=== PATIENT | male | born 1935 | race Caucasian/White ===

== ENCOUNTER 2021-02-20 08:06 | Outpatient (CLI) | payer MEDICARE, SELFPAY ==
--- NOTE | ~2021-02-20 | US_ITS ---
EXAMINATION: US art doppler w press LE BI DATE: 02/20/2021 09:11 INDICATION: Intermittent claudication. TECHNIQUE: Segmental pressures and plethysmographic and Doppler waveforms of the brachial and lower e xtremity arteries were obtained. COMPARISON: None. FINDINGS: Right and left brachial artery pressures of 155 mm Hg and 153 mm Hg, respectively, are concordant (no rmal difference <= 30 mmHg). The right and left high-thigh pressure indices are 1.19 and 1.16, respec tively (normal > 1.2). The right ankle-brachial index (NIKKI) is 1.18 (normal >= 0.9-1). The right great toe-brachial index (T BI) is 0.96 (normal >= 0.6-0.8). The right lower extremity segmental pressure gradients are normal (n ormal gradients <= 20-30 mmHg between adjacent levels on the same leg or the same levels on the two l egs). Arterial waveforms are triphasic at the right common femoral and superficial femoral arteries a nd biphasic at the right popliteal, posterior tibial and dorsalis pedis arteries with brisk systolic upstrokes throughout. The left NIKKI is 1.34. The left TBI is 0.92. The left lower extremity segmental pressure gradients are normal. Arterial waveforms are biphasic with brisk systolic upstrokes throughout the arteries of the left lower limb.. IMPRESSION: 1. Normal NIKKI's and TBI's bilaterally. No significant occlusive disease. Reviewed, dictated and finalized at location A.
== END 2021-02-20 08:07 | disposition home or self-care (01) ==
PROVIDERS: PCP Internal Medicine; Visit Provider Internal Medicine
DX: I73.9 Peripheral vascular disease, unspecified (principal)
CPT/HCPCS: 93923

== ENCOUNTER 2023-04-19 02:39 | Emergency (ER) | payer MEDICARE, SELFPAY ==
--- NOTE | ~2023-04-19 | CT_ITS ---
EXAMINATION: CT brain wo con DATE: 04/19/2023 03:52 INDICATION: Head injury. TECHNIQUE: Computed tomography (CT) of the head was performed without intravenous contrast. The mA wa s adjusted according to patient size. Iterative reconstruction technique was employed. The dose-lengt h product was 681.00 mGy-cm. COMPARISON: None FINDINGS: There is an old infarct involving the left frontoparietal region. There is an infarct in th e left thalamus. There are scattered areas of low attenuation in the cerebral white matter. There is no intracranial hemorrhage or abnormal mass lesion. The ventricles are normal in size. There is cavum septum pellucidum and vergae. The orbits are normal. There is mucosal thickening in the paranasal si nuses. The mastoid air cells are normal. IMPRESSION: 1. Old infarct involving the left frontoparietal region. 2. Age-indeterminate infarct in the left thalamus. 3. Moderate nonspecific cerebral white matter disease, which likely represents chronic small vessel i schemic disease. Reviewed, dictated and finalized at location E. R OPERATOR IMPRESSION: 1. Old infarct involving the left frontoparietal region. 2. Age-indeterminate infarct in the left thalamus. 3. Moderate nonspecific cerebral white matter disease, which likely represents chronic small vessel ischemic disease.
--- NOTE | ~2023-04-19 | XR_ITS ---
EXAMINATION: XR ankle RT min 3V DATE: 04/19/2023 03:55 INDICATION: Right ankle pain and swelling. Fall. TECHNIQUE: 4 views of right ankle were obtained. COMPARISON: None. FINDINGS: Bone alignment is normal. No fracture. There is mild osteoarthritis involving the ankle ben nt and midfoot. There are enthesophytes at the posterior and plantar aspects of calcaneal tuberosity. IMPRESSION: 1. Mild polyarticular osteoarthritis. Reviewed, dictated and finalized at location E. CAL CASE MANAGER
--- NOTE | ~2023-04-19 | CT_ITS ---
EXAMINATION: CT cervical spine wo con DATE: 04/19/2023 03:52 INDICATION: Neck pain. Fall. TECHNIQUE: Computed tomography (CT) of the cervical spine was performed without intravenous contrast. Automated exposure control and iterative reconstruction technique were employed. The dose-length pro duct was 169.39 mGy-cm. COMPARISON: None FINDINGS: There is 2 mm retrolisthesis of C3 on C4. Vertebral body heights are normal. There is sever virgie decreased disc height at C3-C4, moderately decreased disc height at C4-C5, severely decreased dis c height at C5-C6, and mildly decreased disc height at C6-C7. The following disc levels are specifica lly discussed: C2-C3: There is mild bilateral uncovertebral joint osteoarthritis. There is severe right and moderate left facet joint osteoarthritis. There is no neural foraminal stenosis. There is mild central canal stenosis. C3-C4: There is severe bilateral uncovertebral joint osteoarthritis. There is mild bilateral facet ildefonso int osteoarthritis. There is mild bilateral neural foraminal stenosis. There is mild central canal st enosis. C4-C5: There is mild bilateral uncovertebral joint osteoarthritis. There is moderate bilateral facet joint osteoarthritis. There is mild bilateral neural foraminal stenosis. There is mild central canal stenosis. C5-C6: There is severe bilateral uncovertebral joint osteoarthritis. There is severe bilateral facet joint osteoarthritis. There is mild right and moderate left neural foraminal stenosis. There is mild central canal stenosis. C6-C7: There is mild bilateral uncovertebral joint osteoarthritis. There is moderate bilateral facet joint osteoarthritis. There is no neural foraminal stenosis. There is no central canal stenosis. C7-T1: There is no uncovertebral joint osteoarthritis. There is moderate right and severe left facet joint osteoarthritis. There is mild left neural foraminal stenosis. There is no central canal stenosi s. IMPRESSION: 1. No fracture. 2. Severe cervical spondylosis. Reviewed, dictated and finalized at location E. ON INSPECTOR
[2023-04-19 02:38] VITALS: BP 104/76; PULSE 79; RESP 17; TEMP 36.6; O2SAT 100
[2023-04-19 02:45] VITALS: BP 121/79; PULSE 77; RESP 17; TEMP 36.6; O2SAT 100
--- NOTE | 2023-04-19 04:21 | ED.GENADULT ---
HPI - General Adult General Chief complaint: Fall Stated complaint: FALL OUT OF BED, ON BLOOD THINNERS Time Seen by Provider: 04/19/23 03:02 History of Present Illness HPI narrative: Patient 87-year-old gentleman who presents the emergency department with chief complaint of fall from snf. Patient is a resident of a local snf and is currently on Eliquis the patient has had a prior stroke and apparently rolled out of his bed staff noticed there was a small abrasion on his left ear patient also reports that he has pain in his right ankle. Review of Systems Review of Systems: A 10 system review of systems was completed on the patient and is negative except for what is stated in the HPI. Nursing and ancillary documentation was reviewed. Exam Narrative: GENERAL: Well-appearing, well-nourished, and in no acute distress. HEAD: Normocephalic, small abrasion to the left ear. EYES: PERRLA and EOMI. ENT: Nares clear, no rhinorrhea or epistaxis. Mucous membranes moist. NECK: Supple. CHEST: Clear to auscultation. No respiratory distress. HEART: Regular rate and rhythm. No murmur heard. Normal peripheral pulses. ABDOMEN: Soft, nontender, nondistended, normal active bowel sounds. EXTREMITIES: Normal range of motion has weakness of the lower extremities at baseline. No edema. SKIN: Warm, dry, no rash. NEURO: No focal deficits. Alert and oriented x3. PSYCH: Normal mood and affect. Course Vital Signs Vital signs: Vital Signs Temperature 36.6 C 04/19/23 02:38 Pulse Rate 79 04/19/23 02:38 Respiratory Rate 17 04/19/23 02:38 Blood Pressure 104/76 04/19/23 02:38 Pulse Oximetry 100 04/19/23 02:38 Oxygen Delivery Room Air 04/19/23 02:38 Temperature 36.6 C 04/19/23 02:45 Pulse Rate 73 04/19/23 04:25 Respiratory Rate 20 04/19/23 04:25 Blood Pressure 121/72 04/19/23 04:25 Pulse Oximetry 100 04/19/23 04:25 Oxygen Delivery Room Air 04/19/23 02:38 Medical Decision Making [facility] Narrative Medical decision making narrative: Differential diagnosis includes subdural hematoma, epidural hematoma CT head and CT C-spine were obtained. Plain film x-rays of the right ankle were obtained that showed no evidence of fracture. The small abrasion to the left ear required no surgical close Vital Signs Vital Signs: Vital Signs Temperature 36.6 C 04/19/23 02:38 Pulse Rate 79 04/19/23 02:38 Respiratory Rate 17 04/19/23 02:38 Blood Pressure 104/76 04/19/23 02:38 Pulse Oximetry 100 04/19/23 02:38 Oxygen Delivery Room Air 04/19/23 02:38 Temperature 36.6 C 04/19/23 02:45 Pulse Rate 73 04/19/23 04:25 Respiratory Rate 20 04/19/23 04:25 Blood Pressure 121/72 04/19/23 04:25 Pulse Oximetry 100 04/19/23 04:25 Oxygen Delivery Room Air 04/19/23 02:38 Discharge Plan Discharge Clinical Impression: Head injury, Abrasion of left ear, Fall from bed Patient Disposition: ID Long-Term/Asst Living Condition: Stable Instructions: Antibiotic Form, Head Injury (ED), Abrasion (ED) Follow-up/Referrals: Dorian,MD Jesús [Primary Care Provider] - Time of Disposition: 05:34
[2023-04-19 04:25] VITALS: BP 121/72; PULSE 73; RESP 20; O2SAT 100
[2023-04-19 06:33] VITALS: BP 126/70; PULSE 86; RESP 20; O2SAT 100
--- NOTE | 2023-04-19 06:46 | PC.NURSE ---
This RN attempted to call [facility] to give nurse to nurse report but did not receive an answer.
[2023-04-19 07:16] VITALS: BP 129/81; PULSE 91; RESP 18; O2SAT 99
--- NOTE | 2023-04-19 07:28 | PC.NURSE ---
This RN attempted to call report to [facility] , nobody answered the phone.
--- NOTE | 2023-04-19 08:26 | PC.NURSE ---
This RN attempted to call report to [facility] again, nobody answered the phone
== END 2023-04-19 08:45 ==
PROVIDERS: Emergency Provider Emergency Medicine; PCP Internal Medicine
DX: S00.412A Abrasion of left ear, initial encounter (principal); Z86.73 Personal history of transient ischemic attack (TIA), and cerebral infarction without residual deficits; Z79.01 Long term (current) use of anticoagulants; M19.071 Primary osteoarthritis, right ankle and foot; M47.812 Spondylosis without myelopathy or radiculopathy, cervical region; R90.82 White matter disease, unspecified; W06.XXXA Fall from bed, initial encounter
CPT/HCPCS: 70450; 72125; 73610; 99284

== ENCOUNTER 2023-04-28 14:18 | Inpatient (IN) | payer MEDICARE, MEDICAID, SELFPAY ==
[2023-04-28] VITALS (8 sets, daily range): BP systolic 109–153; BP diastolic 48–65; PULSE 35–80; RESP 16–23; TEMP 36.3–36.6; O2SAT 98–100
--- NOTE | ~2023-04-28 | XR_ITS ---
EXAM: XR shoulder RT min 2V DATE: 04/28/2023 17:15 HISTORY: fall . COMPARISON: The. FINDINGS: Normal mineralization. No fracture or dislocation. No lytic or blastic lesion. Moderate gl enohumeral joint and acromioclavicular joint degenerative change. No erosion or periosteal change. So ft tissues within normal limits. Senescent changes in the lungs IMPRESSION: No acute osseous finding in the right shoulder. Reviewed, dictated and finalized at location K. TH ACTUARY
--- NOTE | ~2023-04-28 | XR_ITS ---
XR chest 1V portable 04/28/2023 15:27 Indication: Status post fall. Syncope. CVA peak Procedure: AP portable chest Comparison: No prior studies for comparison. Findings: Cardiomegaly. No focal air space disease, pulmonary edema, pleural effusion or suspected pn eumothorax. Nodular density left lower thorax. Consider correlation with CT chest. No acute osseous a bnormality. Impression: 1: No acute cardiopulmonary disease. 2: Nodular density left lower thorax. Consider correlation with CT chest. Reviewed, dictated and finalized at location L. BRUSH DECORATOR Impression: 1: No acute cardiopulmonary disease. 2: Nodular density left lower thorax. Consider correlation with CT chest.
--- NOTE | 2023-04-28 14:29 | ECG_ITS ---
Measurements Intervals [place] Rate: 35 P: NE: 0 QRS: -59 QRSD: 118 T: -55 QT: 549 QTc: 420 Interpretive Statements SLOW JUNCTIONAL RHYTHM RIGHT BUNDLE BRANCH BLOCK LEFT ANTERIOR FASCICULAR BLOCK BASELINE ARTIFACT- II, III, AVL, AVF, V1-V3 ABNORMAL ECG NO PREVIOUS ECG AVAILABLE FOR COMPARISON Electronically Signed On 04-28-2023 16:46:07 LUMBER INSPECTOR by Enrique Phoenix D.O.
--- NOTE | 2023-04-28 14:34 | PC.NURSE ---
0.5mg atropine at 1434
--- NOTE | 2023-04-28 14:43 | ED.FALL ---
HPI - Fall General Chief Complaint: Fall Stated Complaint: unwitnessed, glf Time Seen by Provider: 04/28/23 14:29 Source: patient, family, EMS and other ([facility] documentation) Mode of arrival: EMS Limitations: clinical condition and dementia History of Present Illness HPI Narrative: Patient presents from [facility] after a reported fall. He is noted to be bradycardic for EMS and remains persistently bradycardic on arrival. 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 He has a PEG tube in place. He is alert and oriented x1 thus unable to provide own history but he denies being in any pain. [facility] documentation that arrives with patient is reviewed showing PMH/PSH, medications, emergency contacts, and DNR status (signed). Related Data Home Medications Medication Instructions Recorded Confirmed Arthritis Pain (diclofenac) 1 appful topical PRN PRN Pain 04/28/23 04/28/23 acetaminophen 500 mg tablet 500 mg feeding tube Q4H PRN Pain 04/28/23 04/28/23 (Scale Score 1-3) amlodipine 10 mg tablet 10 mg feeding tube DAILY 04/28/23 04/28/23 apixaban 2.5 mg tablet (Eliquis) 2.5 mg feeding tube BID 04/28/23 04/28/23 aspirin 81 mg capsule 81 mg feeding tube DAILY 04/28/23 04/28/23 bisacodyl 10 mg RECTAL DAILY PRN Constipation 04/28/23 04/28/23 carvedilol 3.125 mg tablet 3.125 mg feeding tube BID 04/28/23 04/28/23 famotidine 40 mg/5 mL (8 mg/mL) 20 mg feeding tube BID 04/28/23 04/28/23 oral suspension gabapentin 400 mg capsule 400 mg feeding tube TID 04/28/23 04/28/23 melatonin 3 mg tablet 3 mg feeding tube HS 04/28/23 04/28/23 olanzapine 2.5 mg tablet 2.5 mg feeding tube HS 04/28/23 04/28/23 polyvinyl alcohol 1.4 % eye drops 1 drp EACH EYE BID 04/28/23 04/28/23 rosuvastatin 20 mg tablet 20 mg PO DAILY 04/28/23 04/28/23 sennosides 8.6 mg-docusate sodium 1 tab-cap PO BID 04/28/23 04/28/23 50 mg capsule (Senna Plus) Allergies Allergy/AdvReac Type Severity Reaction Status Date / Time pravastatin Allergy Unknown Verified 04/19/23 06:38 simvastatin Allergy Unknown Verified 04/19/23 06:38 [facility] Family History Family History (Updated 04/28/23 @ 22:27 by Roxie Joaquin RN) Other Unknown family medical history Social History Social History Smoking status: Unknown if ever smoked Alcohol intake: never Substance use: never Spiritual care concerns: No Exam Narrative: GENERAL: Chronically ill appearing, but in no acute distress. HEAD: Normocephalic, atraumatic. EYES: Grossly normal. No scleral icterus or injection. ENT: Nares clear, no rhinorrhea or epistaxis. Mucous membranes dry. NECK: Supple. CHEST: Clear to auscultation. No respiratory distress. Course breath sounds but due to transmissible upper airway sounds in the setting of sticky secretions at posterior oropharynx HEART: Bradycardic rate and rhythm. No murmur heard. ABDOMEN: Soft, nontender, nondistended, PEG tube in place without surrounding erythema, purulent drainage, induration. EXTREMITIES: Normal passive range of motion. No edema. Pelvis stable to compression. SKIN: Warm, dry. Skin tear/abrasion approximately 2 cm x 1 cm on left arm, bleeding controlled. Well-healing ecchymosis overlying right shoulder. NEURO: Right sided deficits of upper and lower extremity. Expressive aphasia. Unable to provide history. Echolalia. PSYCH: Appears calm and in no acute distress. Course Vital Signs Vital signs: Vital Signs Temperature 97.4 F L 04/28/23 14:37 Pulse Rate 35 L 04/28/23 14:37 Respiratory Rate 18 04/28/23 14:37 Blood Pressure 134/59 L 04/28/23 14:37 Pulse Oximetry 100 04/28/23 14:37 Oxygen Delivery Room Air 04/28/23 14:37 Temperature 98 F 04/29/23 14:16 Pulse Rate 71 04/29/23 14:16 Respiratory Rate 16 04/29/23 14:16 Blood Pressure 123/50 L 04/29/23 14:16 Pulse Oximetry 99 04/29/23 14:16 Oxy
[2023-04-28 14:59] LABS: Basophils Percent Auto 0.4 % (0.2-1.2); Eosinophils Absolute Auto 0.4 K/mm3 (0-0.3); Eosinophils Percent Auto 3.7 % (0-4.4); Hematocrit 33.8 % (42.0-52.0); Hemoglobin 10.3 g/dL (14.0-18.0); Immature Granulocyte Absolute 0.06 K/mm3 (0.00-0.031); Immature Granulocyte Percent A 0.6 % (0-0.5); Mean Corpuscular HGB Conc 30.5 g/dl (32-36); Mean Corpuscular Hemoglobin 30.7 pg (26-34); Mean Corpuscular Volume 100.9 fl (80-100); Mean Platelet Volume 12.2 fl (7.4-10.4); Neutrophils Absolute Auto 7.8 K/mm3 (1.3-6.7); Neutrophils Percent Auto 72.3 % (45.5-73.1); Nucleated Red Blood Cells Perc 0.2 % (0.0-0.2); Platelet Count Result 164 k/mm3 (150-375); Red Blood Count 3.35 M/mm3 (4.6-6.20); Red Cell Distribution Width 16.8 % (11.5-14.5); White Blood Count 10.7 K/mm3 (4.5-10.0)
[2023-04-28 15:14] LABS: Alanine Aminotransferase 17 U/L (6-50); Albumin Level 3.5 g/dL (3.5-5.1); Alkaline Phosphatase 95 U/L (38-126); Anion Gap 8 mmol/L (8-16); Aspartate Amino Transferase 20 U/L (17-59); Blood Urea Nitrogen 45 mg/dL (9-20); Calcium 8.7 mg/dL (8.4-10.2); Carbon Dioxide 28 mmol/L (22-30); Chloride 102 mmol/L (98-107); Estimated CRCL calculation 51 ml/min; Estimated Glomerular Filt Rate > 60; Glucose 116 mg/dL (65-110); Sodium 138 mmol/L (137-145)
[2023-04-28 16:25] LABS: Troponin I < 0.012 ng/mL (0.000-0.034)
--- NOTE | 2023-04-28 18:26 | PC.NURSE ---
patient continues to pull off monitor car operator and yelling out. provider aware that patient does not want to be admitted
--- NOTE | 2023-04-28 19:16 | PC.NURSE ---
Assumed care of pt from ANT Joshi at this time.
--- NOTE | 2023-04-28 19:43 | PCCCNOTE ---
1830: Care coordination called to ED for patient having a low heart rate and needing to have a conversation with pt's family who live in [place]. Call placed to Phuc in pastoral care who also came to talk to pt. Pt family requested that a cooling machine operator come to pray with him, this was arranged by Pastor Friend. Family was able to talk to Jose on the phone, he seemed like that lightened his spirit and theirs as well. Pt sister, Xochitl ([phone]) is his next of kin, she however, is hard of hearing so her daughter, Anita ([phone]), is the easiest to speak to and she communicates with her mother. Pt stated he wanted to go home, but this is not possible d/t his being able to take care of himself. The choice was to admit him and observe him in the hospital. 2015 dye house supervisor, Misty, and Shameka SANCHEZ have spoken to Xochitl and Anita on the phone to discuss patient end of life care. Pt. is a DNR already, but wanted to make sure he was just comfort care. Family agreed that is his wishes.
--- NOTE | 2023-04-28 20:32 | PM.IMHP ---
H&P: HPI History of Present Illness Date/Time: 04/28/23 20:32 Chief Complaint: Fall Narrative: This is an 87-year-old male with past medical history significant for atrial fibrillation rate controlled anticoagulated, congestive heart failure, dementia, peg tube in place. Patient was brought today to the emergency room after fall in emergency room he was found to be bradycardic into 35 beats per minute the rhythm was junctional rhythm at that time. Good patient is a do not resuscitate hospice consult in place patient has been placed in observation for further evaluation management and treatment. At the time of my visit I was unable to obtain any history from the patient. XR chest 1V portable 04/28/2023 15:27 Indication: Status post fall. Syncope. CVA peak Procedure: AP portable chest Comparison: No prior studies for comparison. Findings: Cardiomegaly. No focal air space disease, pulmonary edema, pleural effusion or suspected pneumothorax. Nodular density left lower thorax. Consider correlation with CT chest. No acute osseous abnormality. Impression: 1: No acute cardiopulmonary disease. 2:? Nodular density left lower thorax. Consider correlation with CT chest. EXAM:? XR shoulder RT min 2V DATE: 04/28/2023 17:15 HISTORY: fall . COMPARISON:? The. FINDINGS:? Normal mineralization. No fracture or dislocation. No lytic or blastic lesion. Moderate glenohumeral joint and acromioclavicular joint degenerative change. No erosion or periosteal change. Soft tissues within normal limits. Senescent changes in the lungs IMPRESSION: No acute osseous finding in the right shoulder. EKG Rate 35 CO 0 QRSd 118 QT 549 QTc 420 --Rock-- P QRS -59 T -55 SLOW JUNCTIONAL RHYTHM RIGHT BUNDLE BRANCH BLOCK LEFT ANTERIOR FASCICULAR BLOCK BASELINE ARTIFACT- II, III, AVL, AVF, V1-V3 ABNORMAL ECG NO PREVIOUS ECG AVAILABLE FOR COMPARISON Electronically Signed On 04-28-2023 16:46:07 FINISHING SUPERVISOR by Enrique Phoenix D.O. Review of Systems Review of Systems: ROS unobtainable: Yes other [facility] Family History Family History (Updated 04/28/23 @ 22:27 by Roxie Joaquin RN) Other Unknown family medical history Social History Social History Smoking status: Unknown if ever smoked Alcohol intake: never Substance use: never Spiritual care concerns: No Meds Home Medications and Allergies Home Medications Medication Instructions Recorded Confirmed Type Arthritis Pain (diclofenac) 1 appful topical PRN PRN Pain 04/28/23 04/28/23 History acetaminophen 500 mg tablet 500 mg feeding tube Q4H PRN Pain 04/28/23 04/28/23 History (Scale Score 1-3) amlodipine 10 mg tablet 10 mg feeding tube DAILY 04/28/23 04/28/23 History apixaban 2.5 mg tablet (Eliquis) 2.5 mg feeding tube BID 04/28/23 04/28/23 History aspirin 81 mg capsule 81 mg feeding tube DAILY 04/28/23 04/28/23 History bisacodyl 10 mg RECTAL DAILY PRN Constipation 04/28/23 04/28/23 History carvedilol 3.125 mg tablet 3.125 mg feeding tube BID 04/28/23 04/28/23 History famotidine 40 mg/5 mL (8 mg/mL) 20 mg feeding tube BID 04/28/23 04/28/23 History oral suspension gabapentin 400 mg capsule 400 mg feeding tube TID 04/28/23 04/28/23 History melatonin 3 mg tablet 3 mg feeding tube HS 04/28/23 04/28/23 History olanzapine 2.5 mg tablet 2.5 mg feeding tube HS 04/28/23 04/28/23 History polyvinyl alcohol 1.4 % eye drops 1 drp EACH EYE BID 04/28/23 04/28/23 History rosuvastatin 20 mg tablet 20 mg PO DAILY 04/28/23 04/28/23 History sennosides 8.6 mg-docusate sodium 1 tab-cap PO BID 04/28/23 04/28/23 History 50 mg capsule (Senna Plus) Allergies Allergy/AdvReac Type Severity Reaction Status Date / Time pravastatin Allergy Unknown Verified 04/19/23 06:38 simvastatin Allergy Unknown Verified 04/19/23 06:38 Vital Signs Vital Signs - 24 hr 04/28/23 14:37 04/28/23 15:00 04/28/23 16:00 Temperature 97.4 F L Pulse Rate 35
--- NOTE | 2023-04-28 22:00 | ADMGEN ---
This patient, Jose Marcos, was admitted to Medical Room 255-01. Patient/family oriented to hospital policies and general routines including ID bracelet, bed and alarms, visiting hours, pain management, procedures, bathroom and other care routines, personal items, smoking policy, room service/diet, and visiting hours. Information on how to activate the Rapid Response Team has been discussed. Patient/Family are encouraged to report perceived risks to care and to ask questions if they do not understand what they are told or what they should do.
[2023-04-28] MEDS: LACTATED RINGERS 1,000 ML 75 ML IV CONT (22:08)
[2023-04-29] MEDS: DEXTROSE 5%/0.45% SOD CHL 1,000 ML 65 ML IV CONT ×2 (01:23→17:52)
[2023-04-29] MEDS: ACETAMINOPHEN 500 MG TABLET FEED TUBE (05:31)
[2023-04-29 06:00] VITALS: BP 119/45; PULSE 37; RESP 24; TEMP 36.3; O2SAT 100
[2023-04-29] MEDS: APIXABAN 2.5 MG TABLET FEED TUBE (09:53)
[2023-04-29] MEDS: SENNA/DOCUSATE SODIUM TABLET 1 TAB FEED TUBE (09:54)
[2023-04-29] MEDS: ARTIFICIAL TEARS OPHTH SOLN 15 ML BOTTLE 1 DROP EACH EYE ×2 (09:54→20:13)
[2023-04-29] MEDS: GABAPENTIN 400 MG CAPSULE FEED TUBE ×3 (09:54→17:52)
[2023-04-29] MEDS: ASPIRIN 81 MG CHEWABLE TABLET FEED TUBE (09:54)
[2023-04-29] MEDS: FAMOTIDINE 20 MG TABLET FEED TUBE ×2 (09:54→17:52)
--- NOTE | 2023-04-29 13:04 | PM.IMPN ---
Progress Note: A&P Assessment and Plan (1) Bradyarrhythmia: Code(s): I49.8 - Other specified cardiac arrhythmias Status: Acute Assessment and Plan: Pacer pads on, Patient admitted to [facility] Awaiting hospice evaluation Comfort care measures only (2) Presence of externally removable percutaneous endoscopic gastrostomy (PEG) tube: Code(s): Z93.1 - Gastrostomy status Status: Acute Assessment and Plan: Will not resume PEG tube feedings IV fluids for now Plan Comfort measures ordered, medications and hospice evaluation. [facility] keep for [facility] hosp[facility] Subjective Date/time seen: 04/29/23 13:04 Interval history: Patient is an 87 YO male with PMH significant for atrial fibrillation rate controlled anticoagulated, congestive heart failure, dementia, peg tube in place at time of admission. [facility] In the emergency room he was found to be bradycardic into 35 beats per minute, and has remained bradycardic. Patient is a DNR, confirmed with family by care coordination today that he is comfort measures only and will be evaluated this evening for inpatient hospice vs returning to [place] for hospice care. Patient is alert and oriented to himself only this morning. PEG tube in place, but will provide comfort measures only at this time. Review of Systems Review of Systems: ROS unobtainable: Yes other Exam Narrative: Patient is in a stretcher Const: General: comfortable, no acute distress, alert, awake, ill appearing and thin Nutritional Appearance: thin Orientation/consciousness: oriented to person HENMT: Head: normal to inspection and atraumatic Ears: hearing grossly normal bilaterally Face/Nose/Sinus: normal facial exam Face and sinus: normal facial exam Eyes: Pupils: Equal, round and reactive pupils present EOM: EOMs intact bilaterally Neck: Neck: no lymphadenopathy and no JVD Thyroid: thyroid normal Lymphatic: no lymphadenopathy noted Resp: Effort & Inspection: normal respiratory effort and able to speak in complete sentences Auscultation: clear to auscultation bilaterally Cardio: Jugular venous distension: no JVD Rate: bradycardic Rhythm: regular rhythm Heart sounds: S1 normal heart sound present and S2 normal heart sound present GI: GI Palp: Yes Soft to palpation Auscultation: normal bowel sounds Skin: Rashes: no rashes Wounds: no wounds Neuro: General: oriented to person and Unable to assess gait Speech: dysarthria Gait exam (Neuro): Unable to assess gait Motor exam (neuro): Other motor observations present (RUE weakness) Extrem: General: normal to inspection and no pedal edema Left upper extremity: elbow/forearm swelling Objective Data Vital Signs Vital Signs: Vital Signs - 24 hr 04/28/23 14:37 04/28/23 15:00 04/28/23 16:00 Temperature 97.4 F L Pulse Rate 35 L 36 L Respiratory Rate 18 18 18 Blood Pressure 134/59 L 118/53 L 112/49 L Pulse Oximetry 100 100 100 Oxygen Delivery Room Air 04/28/23 17:00 04/28/23 20:22 04/28/23 21:23 Temperature 97.4 F L Pulse Rate 35 L 36 L 42 L Respiratory Rate 16 22 H 22 H Blood Pressure 118/65 126/54 L 153/58 H Pulse Oximetry 100 98 99 Oxygen Delivery 04/28/23 21:47 04/28/23 22:14 04/28/23 22:00 Temperature 97.8 F Pulse Rate 42 L 80 Respiratory Rate 23 H 20 Blood Pressure 109/48 L Pulse Oximetry 99 99 Oxygen Delivery Room Air 04/29/23 06:00 Temperature 97.3 F L Pulse Rate 37 L Respiratory Rate 24 H Blood Pressure 119/45 L Pulse Oximetry 100 Oxygen Delivery Meds/Results Medications: Active Medications Generic Name Dose Route Start Last Admin Trade Name Freq PRN Reason Stop Dose Admin Acetaminophen 500 mg 04/28/23 23:26 04/29/23 05:31 Acetaminophen 500 Mg Tablet FEED TUBE 500 mg Q4H PRN Administration Pain (Scale Score 1-3) Apixaban 2.5 mg 04/29/23 09:00 04/29/23 09:53
[2023-04-29 14:16] VITALS: BP 123/50; PULSE 71; RESP 16; TEMP 36.6; O2SAT 99
[2023-04-29] MEDS: LORazepam INJ (*CRX) 2 MG/ML VIAL 1 MG IV PUSH (14:38)
--- NOTE | 2023-04-29 15:01 | PCDIET ---
Nutrition consult: Tube feeding consult was placed for home tube feeding with existing PEG. Pt placed on comfort measures, tube feedings will not be started. Inpatient hospice vs discharge to [place] on hospice.
[2023-04-29 15:54] LABS: Appearance Urine Turbid (Clear); Bacteria Urine 4+ /hpf; Bilirubin Urine Negative (Negative); Blood Urine 3+ (Negative); Color Urine Dark Yellow (Yellow); Glucose Urine UA Negative (Negative); Ketones Urine Trace mg/dL (Negative); Leukocyte Esterase Ur 2+ LEU/UL (Negative); Need Manual Microscopic Reviewed; Nitrate Urine Negative (Negative); Non Pathogenic Casts 0-2; Protein Urine 3+ mg/dL (Negative); RBC Urine >100 /hpf (0-2); Specific Grav Ur 1.022 (1.001-1.035); Squamous Epithelial Cell Urine None seen /hpf (Few); WBC Urine >100 /hpf
[2023-04-29 15:55] LABS: Add Urine Microscopic? YES
[2023-04-29] MEDS: MUPIROCIN 2% OINT 22 GM TUBE 1 APPLIC TOPICAL (18:54)
[2023-04-29 19:32] VITALS: BP 109/48; PULSE 71; RESP 18; TEMP 36.5; O2SAT 96
[2023-04-29 20:00] VITALS: PULSE 71; RESP 18; O2SAT 96
[2023-04-29] MEDS: MELATONIN 3 MG TABLET FEED TUBE (20:12)
[2023-04-29] MEDS: MORPHINE SULFATE (*CRX) 2 MG/ML INJ IV PUSH (20:12)
[2023-04-30] MEDS: MORPHINE SULFATE (*CRX) 2 MG/ML INJ IV PUSH ×2 (00:10→09:48)
[2023-04-30 09:05] VITALS: O2SAT 85
[2023-04-30 09:06] VITALS: O2SAT 93
[2023-04-30] MEDS: MUPIROCIN 2% OINT 22 GM TUBE 1 APPLIC TOPICAL (09:27)
[2023-04-30] MEDS: GABAPENTIN 400 MG CAPSULE FEED TUBE ×3 (09:27→17:23)
[2023-04-30] MEDS: FAMOTIDINE 20 MG TABLET FEED TUBE ×2 (09:27→17:23)
[2023-04-30] MEDS: ARTIFICIAL TEARS OPHTH SOLN 15 ML BOTTLE 1 DROP EACH EYE ×2 (09:27→21:02)
[2023-04-30] MEDS: LORazepam INJ (*CRX) 2 MG/ML VIAL 1 MG IV PUSH (09:34)
--- NOTE | 2023-04-30 11:45 | PM.IMPN ---
Progress Note: A&P Assessment and Plan (1) Bradyarrhythmia: Code(s): I49.8 - Other specified cardiac arrhythmias Status: Acute Assessment and Plan: Pacer pads on, Patient admitted to [facility] Awaiting hospice evaluation Comfort care measures only (2) Presence of externally removable percutaneous endoscopic gastrostomy (PEG) tube: Code(s): Z93.1 - Gastrostomy status Status: Acute Assessment and Plan: PEG tube feeding in place, awaiting family decision. Currently not feeding through the tube NPO for now Plan Comfort measures ordered, medications and hospice evaluation. Will keep for inpatient hospice or d/c to [facility] for hospice Subjective Date/time seen: 04/30/23 11:45 Interval history: Patient is an 87 YO male with PMH significant for atrial fibrillation rate controlled anticoagulated, congestive heart failure, dementia, peg tube in place at time of admission. Patient was admitted from ER after fall at [facility]. In the emergency room he was found to be bradycardic into 35 beats per minute. He is no longer bradycardic. Patient is a DNR, confirmed with family by care coordination today that he is comfort measures only and will be evaluated for inpatient hospice vs returning to [place] for hospice care. Patient is not alert or verbal this morning. He is quite g[place]. PEG tube in place, but will provide comfort measures only at this time. Called the family to determine if they would like comfort tube feedings given, but Anita (niece) wanted to speak with her mother to decide about this going forward. Will let us know what the family decides. Review of Systems Review of Systems: ROS unobtainable: Yes other Exam Const: General: comfortable, no acute distress, ill appearing and thin Nutritional Appearance: thin Other: not oriented or verbal this morning HENMT: Head: normal to inspection, normocephalic and atraumatic Eyes: General: appearance normal, both eyes and all related structures Neck: Neck: no lymphadenopathy Thyroid: thyroid normal Lymphatic: no lymphadenopathy noted Resp: Effort & Inspection: normal respiratory effort Auscultation: clear to auscultation bilaterally Cardio: Jugular venous distension: no JVD Rate: regular rate Rhythm: regular rhythm GI: GI Palp: Yes Soft to palpation Auscultation: normal bowel sounds Skin: Rashes: no rashes Wounds: no wounds Neuro: General: Unable to assess gait Speech: dysarthria Gait exam (Neuro): Unable to assess gait Motor exam (neuro): Other motor observations present (RUE weakness) Extrem: General: normal to inspection, no joint enlargement and no pedal edema Left upper extremity: elbow/forearm swelling Objective Data Vital Signs Vital Signs: Vital Signs - 24 hr 04/29/23 14:16 04/29/23 19:32 04/29/23 20:00 Temperature 98 F 97.7 F Pulse Rate 71 71 71 Respiratory Rate 16 18 18 Blood Pressure 123/50 L 109/48 L Pulse Oximetry 99 96 96 Oxygen Delivery Room Air Oxygen Flow Rate 04/30/23 09:05 04/30/23 09:06 04/30/23 09:20 Temperature Pulse Rate Respiratory Rate Blood Pressure Pulse Oximetry 85 L 93 Oxygen Delivery Nasal Cannula Nasal Cannula Nasal Cannula Oxygen Flow Rate 8 3 2 Intake/Output Intake/Output: Intake & Output 04/27/23 04/28/23 04/29/23 04/30/23 23:59 23:59 23:59 23:59 Intake Total 1000 Output Total 250 Balance 750 Meds/Results Medications: Active Medications Generic Name Dose Route Start Last Admin Trade Name Freq PRN Reason Stop Dose Admin Acetaminophen 500 mg 04/28/23 23:26 04/29/23 05:31 Acetaminophen 500 Mg Tablet FEED TUBE 500 mg Q4H PRN Administration Pain (Scale Score 1-3) Apixaban 2.5 mg 04/29/23 09:00 04/29/23 09:53 Apixaban 2.5 Mg Tablet FEED TUBE 2.5 mg Q12HR SHADIA Administration Artificial Tears 1 drop 04/29/23 09:00 04/30/23 09:27 Artificial Tears Ophth Soln 15 Ml Bottle EACH EYE 1
[2023-04-30] MEDS: SODIUM CHLORIDE 0.9% IV 1,000 ML 75 ML IV CONT (12:38)
[2023-04-30 12:51] VITALS: PULSE 30; O2SAT 60
[2023-04-30 14:34] VITALS: BP 123/48; PULSE 35; RESP 15; TEMP 36.7; O2SAT 75
[2023-04-30 15:22] VITALS: O2SAT 75
[2023-04-30] MEDS: SCOPOLAMINE 1.5 MG PATCH TRANSDERM (17:57)
[2023-04-30] MEDS: ATROPINE SULFATE 1% OPHTH SOLN 5 ML BOTTLE 2 DROP SUBLINGUAL ×2 (17:58→21:02)
[2023-04-30 20:30] VITALS: BP 149/56; PULSE 77; RESP 14; TEMP 36.9; O2SAT 95
[2023-05-01] MEDS: ATROPINE SULFATE 1% OPHTH SOLN 5 ML BOTTLE 2 DROP SUBLINGUAL ×3 (01:50→09:37)
[2023-05-01] MEDS: MORPHINE SULFATE (*CRX) 2 MG/ML INJ IV PUSH ×2 (03:02→05:41)
[2023-05-01] MEDS: SODIUM CHLORIDE 0.9% IV 1,000 ML 75 ML IV CONT (03:03)
[2023-05-01 06:58] VITALS: BMI 20.6
--- NOTE | 2023-05-01 08:43 | PCDIET ---
Nutrition consult: Pt with home PEG tube. NPO, Currently on comfort measures. Awaiting word from family. Hospice papers possibly today. NPO unless directed by family to re-start tube feedings. Confirmed with Coretta SORENSON.
[2023-05-01 09:30] VITALS: O2SAT 84
[2023-05-01] MEDS: FAMOTIDINE 20 MG TABLET FEED TUBE (09:32)
[2023-05-01] MEDS: GABAPENTIN 400 MG CAPSULE FEED TUBE ×2 (09:32→12:21)
[2023-05-01] MEDS: ARTIFICIAL TEARS OPHTH SOLN 15 ML BOTTLE 1 DROP EACH EYE (09:32)
[2023-05-01] MEDS: MUPIROCIN 2% OINT 22 GM TUBE 1 APPLIC TOPICAL (09:33)
[2023-05-01] MEDS: LORazepam INJ (*CRX) 2 MG/ML VIAL 1 MG IV PUSH (10:23)
--- NOTE | 2023-05-01 12:44 | PM.IMPN ---
Progress Note: A&P Assessment and Plan (1) Bradyarrhythmia: Code(s): I49.8 - Other specified cardiac arrhythmias Status: Acute Assessment and Plan: Plan to admit to inpatient hospice once family submits consent forms. Jamir has been out to the hospital and has evaluated the patient. Will remain comfort measures until consent forms are signed. (2) Presence of externally removable percutaneous endoscopic gastrostomy (PEG) tube: Code(s): Z93.1 - Gastrostomy status Status: Acute Assessment and Plan: PEG tube feeding in place, awaiting family decision. Currently not feeding through the tube. NPO for now Subjective Date/time seen: 05/01/23 12:44 Interval history: Waiting for patient's family to sign consent form so patient can be admitted as an inpatient hospice. until patient's family does this he will remain on comfort measures here. He remains NPO. Patient was on IV fluids but these have since been discontinued. Will remain NPO. Oxygen only for comfort purposes. recommended oral care for the patient. Exam Narrative: GENERAL: Comfortable, no acute distress HENMT: dry mucous membranes NECK: no lymphadenopathy RESPIRATORY: clear to auscultation CARDIO: RRR Objective Data Vital Signs Vital Signs: Vital Signs - 24 hr 04/30/23 12:51 04/30/23 14:34 04/30/23 15:22 Temperature 98.1 F Pulse Rate 30 L 35 L Respiratory Rate 15 Blood Pressure 123/48 L Pulse Oximetry 60 L 75 L 75 L Oxygen Delivery Nasal Cannula Oxygen Flow Rate 5 04/30/23 20:30 05/01/23 09:44 05/01/23 09:30 Temperature 98.5 F Pulse Rate 77 Respiratory Rate 14 Blood Pressure 149/56 H Pulse Oximetry 95 84 L Oxygen Delivery Nasal Cannula Nasal Cannula Oxygen Flow Rate 5 5 Intake/Output Intake/Output: Intake & Output 04/28/23 04/29/23 04/30/23 05/01/23 23:59 23:59 23:59 23:59 Intake Total 1000 1000 Output Total 250 400 450 Balance 750 -400 550 Meds/Results Medications: Active Medications Generic Name Dose Route Start Last Admin Trade Name Freq PRN Reason Stop Dose Admin Acetaminophen 500 mg 04/28/23 23:26 04/29/23 05:31 Acetaminophen 500 Mg Tablet FEED TUBE 500 mg Q4H PRN Administration Pain (Scale Score 1-3) Apixaban 2.5 mg 04/29/23 09:00 04/29/23 09:53 Apixaban 2.5 Mg Tablet FEED TUBE 2.5 mg Q12HR SHADIA Administration Artificial Tears 1 drop 04/29/23 09:00 05/01/23 09:32 Artificial Tears Ophth Soln 15 Ml Bottle EACH EYE 1 drop Q12HR SHADIA Administration Artificial Tears 1 drop 04/29/23 12:58 Artificial Tears Ophth Soln 15 Ml Bottle EACH EYE Q4H PRN Dry Eye(s) Atropine Sulfate 2 drop 04/30/23 17:27 05/01/23 09:37 Atropine Sulfate 1% Ophth Soln 5 Ml Bottle SUBLINGUAL 2 drop Q2H PRN Administration Secretions Bisacodyl 10 mg 04/28/23 23:26 Bisacodyl 10 Mg Suppository RECTAL DAILY PRN Constipation Diclofenac Sodium 1 applic 04/28/23 23:26 Diclofenac Sodium 1% 100 Gm Gel (*Bkc) TOPICAL PRN PRN ARTHRITIC Pain Famotidine 20 mg 04/29/23 09:00 05/01/23 09:32 Famotidine 20 Mg Tablet FEED TUBE 05/29/23 08:59 20 mg BID SHADIA Administration Gabapentin 400 mg 04/29/23 09:00 05/01/23 12:21 Gabapentin 400 Mg Capsule FEED TUBE 400 mg TID SHADIA Administration Lorazepam 1 mg 04/29/23 12:58 05/01/23 10:23 Lorazepam Inj (*Crx) 2 Mg/Ml Vial IV PUSH 1 mg Q2H PRN Administration Anxiety or air hunger Melatonin 3 mg 04/29/23 21:00 04/30/23 21:03 Melatonin 3 Mg Tablet FEED TUBE Not Given [facility] Miscellaneous Information 0 each 04/28/23 00:01 Diclofenac Gel Please Add Site Of Application XX 05/28/23 00:00 [facility] Morphine Sulfate 2 mg 04/29/23 12:58 05/01/23 05:41 Morphine Sulfate (*Crx) 2 Mg/Ml Inj IV PUSH 2 mg Q2H PRN Administration Pain Rated 7-10 Mupirocin 1 applic 04/29/23
[2023-05-01 14:31] VITALS: O2SAT 93
[2023-05-01 14:34] VITALS: O2SAT 93
[2023-05-01 18:48] VITALS: BP 124/50; PULSE 41; RESP 20; TEMP 37.6; O2SAT 93
[2023-05-01 18:49] VITALS: O2SAT 93
--- NOTE | 2023-05-05 08:14 | P.DS_ITS ---
DS: Admitting Diagnosis Discharge Date 05/01/23 Admitting Diagnosis 05/05/23 DS: Discharge Diagnosis Discharge Diagnosis (1) Bradyarrhythmia: Code(s): I49.8 - Other specified cardiac arrhythmias Status: Acute (2) Presence of externally removable percutaneous endoscopic gastrostomy (PEG) tube: Code(s): Z93.1 - Gastrostomy status Status: Acute DS: Summary Hospital Course Hospital Course: This is an 87-year-old male with past medical history of AFib, CHF, dementia, G- tube placement the present to the ED on 04/28/2023 due to being found bradycardic at his care home with a heart rate of 35. Patient was DNR on arrival and family was wanting hospice consult. Care coordination was consulted. Patient was unable to give history on admission. Patient's family ok ayed moving patient to comfort care. Once family signed paperwork for hospice care [facility] came out to do an assessment and he was admitted to inpatient hospice. Time Spent with Patient Time attestation: Total time spent providing and/or coordinating discharge services: Exam Narrative: GENERAL: Comfortable, no acute distress HENMT: dry mucous membranes NECK: no lymphadenopathy RESPIRATORY: clear to auscultation CARDIO: RRR Discharge Plan Discharge Attending physician on discharge: Clement Mullins Consulting providers: Binta Mendiola V.; Charles Cuevas; Rigo Xiao; Enrique Phoenix; Megan Tran Discharging Clinician: Coretta Durham Patient Disposition: Hospice - Medical Facility Discharge Instructions: Discharge inpatient hospice. Patient Instructions: Apixaban (By mouth) Stand Alone Forms: General Discharge Information Discharge Medications: Discontinued Arthritis Pain (diclofenac) 1 appful topical PRN PRN (Reason: Pain) Rx Instructions: apply to arthritic pain site Date of admission: 04/28/23 17:40 Primary Care Provider: Sukhjinder*Jesús Admitting Provider: Wolfgang Williamson Attending physician on admission: Coretta Durham Condition: Stable
== END 2023-05-01 19:29 | disposition hospice, inpatient (51) | DRG 310 ==
LOC: ANHED 14:52 → ANH3MEDSUR 19:25 → ANH2MED 21:43
PROVIDERS: Emergency Medicine; Admitting Provider Family Medicine; Emergency Provider Student in an Organized Health Care Education/Training Program; PCP Internal Medicine; Visit Provider Internal Medicine Critical Care Medicine
DX: I49.8 Other specified cardiac arrhythmias (principal); I50.9 Heart failure, unspecified; I48.20 Chronic atrial fibrillation, unspecified; F03.90 Unspecified dementia, unspecified severity, without behavioral disturbance, psychotic disturbance, mood disturbance, and anxiety; I69.322 Dysarthria following cerebral infarction; I69.320 Aphasia following cerebral infarction; I69.398 Other sequelae of cerebral infarction; Z93.1 Gastrostomy status; Z51.5 Encounter for palliative care; Z79.01 Long term (current) use of anticoagulants; Z79.82 Long term (current) use of aspirin
CPT/HCPCS: 36415; 71045; 73030; 80053; 81001; 84484; 85025; 87086; 87088; 93005; 99285; A9270; J0461; J2060; J2270; J7030; J7120

== ENCOUNTER 2023-05-01 19:35 | HOS | payer OTHER, MEDICARE, MEDICAID, SELFPAY ==
[2023-05-01 19:53] VITALS: BMI 20.2
[2023-05-01 20:30] VITALS: BP 120/53; PULSE 40; RESP 14; TEMP 38.3; O2SAT 87
[2023-05-01] MEDS: MORPHINE SULFATE INJ (*CRX) 50 MG in SODIUM CHLORIDE 0.9% IV 95 ML IV CONT (20:41)
--- NOTE | 2023-05-01 23:54 | PM.IMHP ---
H&P: HPI History of Present Illness Date/Time: 05/01/23 23:54 Chief Complaint: Uncontrolled dyspnea Narrative: This unfortunate gentleman with dementia and congestive heart failure worsened admitted via the emergency department on April 28 due to dyspnea and bradycardia. Heart rate was as low as 35 the emergency department. Family did not wish pacemaker placement or other invasive interventions. He did not respond to standard heart failure treatment. He was placed on comfort care. He was admitted inpatient hospice due to uncontrolled dyspnea on May 01. He was comfortable overnight on morphine drip at 2 milligrams/hour. However this morning he became more tachypneic with audibly rattling respirations. Additional morphine and Robinul were administered with minimal improvement. His morphine drip was increased to 3 milligrams/hour and is bolus to 3 mg p.r.n.. Review of Systems Review of Systems: ROS unobtainable: Yes unobtainable due to medical condition [facility] Family History Family History Other Unknown family medical history Social History Social History Smoking status: Unknown if ever smoked Alcohol intake: never Substance use: never Spiritual care concerns: No Meds Home Medications and Allergies Home Medications Medication Instructions Recorded Confirmed Type Arthritis Pain (diclofenac) 1 appful topical PRN PRN Pain 04/28/23 05/01/23 History Allergies Allergy/AdvReac Type Severity Reaction Status Date / Time pravastatin Allergy Unknown Verified 04/19/23 06:38 simvastatin Allergy Unknown Verified 04/19/23 06:38 Vital Signs Vital Signs - 24 hr 05/01/23 19:53 05/01/23 20:30 Temperature 101.0 F H Pulse Rate 40 L Respiratory Rate 14 Blood Pressure 120/53 L Pulse Oximetry 87 L Oxygen Delivery Room Air Exam Narrative: Elderly gentleman appears of stated age in no acute distress. Psychiatric sleeping soundly and unresponsive to verbal or tactile stimuli. Neck without JVD. Chest coarse crackles scattered throughout with August coarse upper airway sound. Heart S1 and S2 normal. Rate irregular. No audible murmur. Extremities trace pitting pedal edema. Abdomen hypoactive bowel sounds soft no obvious tenderness no palpable masses. Musculoskeletal without gross deformity to visual inspection. Neurologic cranial nerves symmetric to visual inspection. Assessment and Plan Assessment and plan (1) Palliative care encounter: Code(s): Z51.5 - Encounter for palliative care Status: Acute Assessment and Plan: Beats inpatient hospice criteria due to requiring continuous IV morphine for control of dyspnea Remainder of palliative regimen as ordered (2) Congestive heart failure: Code(s): I50.9 - Heart failure, unspecified Status: Acute (3) Chronic atrial fibrillation, unspecified: Code(s): I48.20 - Chronic atrial fibrillation, unspecified Status: Acute (4) Bradyarrhythmia: Code(s): I49.8 - Other specified cardiac arrhythmias Status: Acute (5) Dementia: Code(s): F03.90 - Unspecified dementia, unspecified severity, without behavioral disturbance, psychotic disturbance, mood disturbance, and anxiety Status: Acute (6) Presence of externally removable percutaneous endoscopic gastrostomy (PEG) tube: Code(s): Z93.1 - Gastrostomy status Status: Acute
[2023-05-02] MEDS: GLYCOPYRROLATE INJ (*SP) 0.2 MG/ML VIAL 0.1 MG IV PUSH ×2 (04:56→12:27)
[2023-05-02 09:00] VITALS: BP 111/43; PULSE 42; RESP 12; TEMP 36.2; O2SAT 70
[2023-05-02] MEDS: MORPHINE SULFATE (*CRX) 2 MG/ML INJ IV PUSH (12:27)
--- NOTE | 2023-05-03 20:22 | PM.DDS ---
Discharge Summary Date and Time Date of : 05/02/23 Time of : 15:02 Provider Pronounced By: ANT Nam and ANT Noel Probable Cause of Probable Cause of : congestive heart failure Summary Hospital Course: Admitted to inpatient hospice service for symptom management. Medications were titrated to comfort. Mr. Marcos peacefully. Additional Data Confirmation of as documented by pronouncing clinician: Palpable Pulses, Response to Stimuli, Heart Tones and Breath Sounds Name of Provider Notified: Dr. Clarke Time Provider Notified: 15:25 Provider Requests Autopsy: No Special Skills Officer Notified: Yes Date [facility] Notified of : 05/02/23 Time [facility] Notified of : 15:20
== END 2023-05-02 15:02 | disposition expired | DRG 951 ==
LOC: ANH2MED 19:38
PROVIDERS: Admitting Provider Internal Medicine; PCP Internal Medicine; Visit Provider Internal Medicine
DX: Z51.5 Encounter for palliative care (principal); I48.20 Chronic atrial fibrillation, unspecified; F03.90 Unspecified dementia, unspecified severity, without behavioral disturbance, psychotic disturbance, mood disturbance, and anxiety; I50.9 Heart failure, unspecified; I49.8 Other specified cardiac arrhythmias; Z93.1 Gastrostomy status
CPT/HCPCS: A9270; J2270